=== PATIENT | male | born 1985 | race Two or more races ===

== ENCOUNTER 2019-11-17 17:27 | Emergency (ER) | payer SELFPAY ==
[~2019-11-17] VITALS: Ht 170.2 cm; Wt 77.3 kg
[2019-11-17 17:33] VITALS: BP 131/63
--- NOTE | 2019-11-17 18:01 | PHYS DOC ---
Past History Past Medical History: No Pertinent History Past Surgical History: No Surgical History Smoking: Non-smoker Alcohol Use: None General Adult EDM: Chief Complaint: ALLERGIC REACTION HPI: HPI: "... "Alerg[place] a los camarones...".." ..Me los comi unos30 min.... hace..."..."yo tengo un sarpullidod... picazon.. urticana..."... Patient is a 34 year old male who presents with complaints of allergic reaction after eating shrimp. Pt. has not eaten shrimp before.. Intake of shrimp was approximately 30 min. prior to arrival. Patient denies any other changes in diet or meds. Patient denies any underlying health issues. Patient has not had any recent travel and has lived in [facility] past 19 years. Patient denies any exposures to chemicals soaps or other irritants. Patient accidentally ate shrimp approximately 30 minutes ago. Patient denies any history immunosuppression. No recent other exposures that were suspect causing his allergic reaction. Patient allergic reaction consist of itchy skin, patient does have some areas that appear to be hives approximate 1 cm in circumference and raised. No petechiae. Patient denies any history of immunosuppression. Review of Systems: Review of Systems: Constitutional: Denies fever or chills Eyes: Denies change in visual acuity HENT: Denies nasal congestion or sore throat Respiratory: Denies cough or shortness of breath Cardiovascular: Denies chest pain or edema GI: Denies abdominal pain, nausea, vomiting, bloody stools or diarrhea : Denies dysuria Musculoskeletal: Denies back pain or joint pain Integument: Complaints of rash Neurologic: Denies headache, focal weakness or sensory changes Endocrine: Denies polyuria or polydipsia Lymphatic: Denies swollen glands Psychiatric: Denies depression or anxiety Heart Score: Risk Factors: Risk Factors: DM, Current or recent (<one month) smoker, HTN, HLP, family history of CAD, obesity. Risk Scores: Score 0 - 3: 2.5% MACE over next 6 weeks - Discharge Home Score 4 - 6: 20.3% MACE over next 6 weeks - Admit for Clinical Observation Score 7 - 10: 72.7% MACE over next 6 weeks - Early Invasive Strategies Family History: Family History: Noncontributory to presentation Current Medications: Current Meds: See nursing for home meds Allergies: Allergies: Allergies Coded Allergies Type Severity Reaction Last Updated Verified No Known Drug Allergies 11/17/19 No Physical Exam: PE: Constitutional: Well developed, well nourished, moderate acute distress, non- toxic appearance. [] HENT: Normocephalic, atraumatic, bilateral external ears normal, oropharynx moist, no oral exudates, nose swollen turbinates and clear rhinorrhea Eyes: PERRLA, EOMI, conjunctiva normal, no discharge. [] Neck: Normal range of motion, no tenderness, supple, no stridor. [] Cardiovascular:Heart rate regular rhythm, no murmur [] Lungs & Thorax: Bilateral breath sounds equal at apex with few scattered wheezes on auscultation [] Abdomen: Bowel sounds hyperactive,, soft, no tenderness, no masses, no pulsatile masses. [] Skin: Warm, dry, patchy area of hives that are erythemic, no petechiae. Back: No tenderness, no CVA tenderness. [] Extremities: No tenderness, no cyanosis, no clubbing, ROM intact, no edema. [] Neurologic: Alert and oriented X 3, normal motor function, normal sensory function, no focal deficits noted. [] Psychologic: Affect anxious, judgement normal, mood normal. [] Current Patient Data: Vital Signs: Vital Signs Date Time Temp Pulse Resp B/P (MAP) Pulse Ox O2 Delivery O2 Flow Rate FiO2 11/17/19 17:33 97.9 101 18 131/63 (85) 95 EKG: EKG: [] Radiology/Procedures: Radiology/Procedures: [] Course & Med Decision Making: Course & Med Decision Making Pertinent Labs and Imaging studies reviewed. (See chart for details) Patient to try and determine if there are any other triggers for his allergic reaction other than shrimp. Patient avoid further intake of shrimp. Patient take Pepcid 20 mg twice a day for the next 5 days. Patient did receive an IM injection of Decadron 40 mg. Prescription for Ventolin, Pepcid 20 mg twice a day for 5 days. One IM dose of Benadryl 50 mg and 1 dose of milk of mag 30 cc. Patient take Benadryl 50 mg up to 4 times a day for itching. Patient return if any concerns. Patient follow-up primary care. Patient avoid further intake of shrimp or seafood. Consider testing for allergic reaction. [] Impression: 1. Allergic Reaction- suspect Shrimp. Dragon Disclaimer: Dragon Disclaimer: This electronic medical record was generated, in whole or in part, using a voice recognition dictation system. Departure Departure: Disposition: 01 HOME/RESIDENCE PRIOR TO ADM Condition: STABLE Referrals: PCP,NO (PCP) Scripts Famotidine (PEPCID) 20 Mg Tablet 20 MG PO BID for allergic reactin for 7 Days, #14 TAB Prov: LASHAE SCHUSTER MD 11/17/19 Albuterol Sulfate (VENTOLIN HFA INHALER) 18 Gm Hfa.aer.ad 2 PUFF IH QIDPRN PRN for FOR ASTHMA, #1 INHALER 0 Refills Prov: LASHAE SCHUSTER MD 11/17/19 Justification of Admission: Justification of Admission: Justification of Admission Dx: No Dragon Disclaimer This chart was dictated in whole or in part using Voice Recognition software in a busy, high-work load, and often noisy Emergency Department environment. It may contain unintended and wholly unrecognized errors or omissions. LASHAE SCHUSTER MD Nov 17, 2019 18:01
[2019-11-17] MEDS ORDERED: ALBU2.5V8 IH (18:06)
[2019-11-17] MEDS ORDERED: FAMO-63 PO (18:06)
[2019-11-17] MEDS ORDERED: diphenhydrAMINE 50 MG/ML VIAL IM ONE (18:15)
[2019-11-17] MEDS ORDERED: FAMOTIDINE 20 MG TABLET PO ONE (18:15)
[2019-11-17] MEDS ORDERED: MAGNESIUM HYDROXIDE 2,400 MG/30 ML ORAL.SUSP. PO ONE (18:15)
[2019-11-17] MEDS ORDERED: methylPREDNISolone ACETATE 40 MG/ML VIAL. IM ONE (18:15)
[2019-11-17] MEDS ORDERED: IPRATRPIUM/ALBUTEROL 0.5/2.5MG 3 ML NEBU. NEB ONE (18:15)
== END 2019-11-17 18:16 | disposition home or self-care (01) ==
LOC: ER 17:27
DX: R21 Rash and other nonspecific skin eruption (principal); T78.1XXA Other adverse food reactions, not elsewhere classified, initial encounter; X58.XXXA Exposure to other specified factors, initial encounter
CPT/HCPCS: 96372; 99284; J1030; J1200

== ENCOUNTER 2020-05-28 22:18 | Emergency (ER) | payer SELFPAY ==
[~2020-05-28 22:18] MED LIST: ALBU2.5V8 IH; FAMO-63 PO
--- NOTE | 2020-05-28 23:03 | PHYS DOC ---
Past History Past Medical History: No Pertinent History Past Surgical History: No Surgical History Smoking: Non-smoker Alcohol Use: None Adult General Chief Complaint Chief Complaint: ALLERGIC REACTION HPI HPI Patient is a 34-year-old male who presents with a chief complaint of concern for allergic reaction. States that about 3 to 4 hours before coming to the ED they were eating at a [employer] restaurant and he had some pork or needles. States about an hour later he had a little bit of redness and flushing around his eyes and on the insides of his elbows. States he had something similar happen several years back when he ate some shrimp but did not eat shrimp today. States that it is actually better than it was earlier. Denies any headache, oropharyngeal/lip/tongue swelling, trouble swallowing, pain with swallowing, shortness of breath, chest pain, abdominal pain, nausea, vomiting, diarrhea. Denies any lightheadedness or syncope. States he otherwise feels well. States that while here in the ED it actually gotten better and almost gone. Denies any other skin findings or itching. Review of Systems Review of Systems Review of systems otherwise unremarkable except noted in HPI Allergies Allergies Allergies Coded Allergies Type Severity Reaction Last Updated Verified No Known Drug Allergies 11/17/19 No Physical Exam Physical Exam Constitutional: Well developed, well nourished, no acute distress, non-toxic appearance. [] HENT: Normocephalic, atraumatic, bilateral external ears normal, oropharynx moist, no oral exudates, nose normal. [] Eyes: PERRLA, EOMI, conjunctiva normal, no discharge. [] Neck: Normal range of motion, no tenderness, supple, no stridor. [] Cardiovascular:Heart rate regular rhythm, no murmur [] Lungs & Thorax: Bilateral breath sounds clear to auscultation [] Abdomen: Bowel sounds normal, soft, no tenderness, no masses, no pulsatile masses. [] Skin: Warm, dry, no erythema, no rash. [] Back: No tenderness, Extremities: No tenderness, no cyanosis, no clubbing, ROM intact, no edema. [] Neurologic: Alert and oriented X 3, normal motor function, normal sensory function, no focal deficits noted. [] Psychologic: Affect normal, judgement normal, mood normal. [] EKG EKG [] Radiology/Procedures Radiology/Procedures [] Heart Score Risk Factors: Risk Factors: DM, Current or recent (<one month) smoker, HTN, HLP, family history of CAD, obesity. Risk Scores: Risk Factors: DM, Current or recent (<one month) smoker, HTN, HLP, family history of CAD, obesity. Course & Med Decision Making Course & Med Decision Making Patient is a 34-year-old male who presents with concern for allergic reaction Vital signs not concerning. Physical exam noted above. Patient with only minor skin findings and no other signs of anaphylaxis. Patient 4 hours out from supposed event with almost resolved symptoms. Due to patient's concern when had gave Benadryl and dexamethasone for nonanaphylactic allergic reaction symptoms. Advised not to eat any seafood or eat at this place again until discussing this with his doctor. Gave strict return precautions to the ED. Patient grateful, verbalized understanding and agreed with plan of discharge. [] Dragon Disclaimer Dragon Disclaimer This electronic medical record was generated, in whole or in part, using a voice recognition dictation system. Departure Departure: Impression: Primary Impression: Allergic Referrals: PCP,NO (PCP) Patient Instructions: Food Allergy and Anaphylaxis Additional Instructions: Please read all the attached information. Please stay away from any food items you feel you may be allergic to or even restaurants that serve those foods in close proximity to years. Please call your primary care physician first thing in the morning to update on your ED visit. Please come back to the ED immediately with new or concerning symptoms as discussed. DILIP SANCHEZ MD May 28, 2020 23:03
[2020-05-28] MEDS ORDERED: DEXAMETHASONE 4 MG TABLET PO ONE (23:30)
[2020-05-28] MEDS ORDERED: diphenhydrAMINE HCL 25 MG CAPSULE PO ONE (23:30)
== END 2020-05-28 23:50 | disposition home or self-care (01) ==
LOC: ER 22:18
DX: T78.1XXA Other adverse food reactions, not elsewhere classified, initial encounter (principal); Y92.89 Other specified places as the place of occurrence of the external cause
CPT/HCPCS: 99283; J8540; Q0163